=== PATIENT | female | born 2000 | race Caucasian/White ===

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

== ENCOUNTER 2019-09-17 16:30 | Inpatient (IN) | payer MEDICAID ==
[~2019-09-17] VITALS: Ht 154.9 cm; Wt 84.4 kg
[2019-09-17] MEDS: LR 1,000 ML IV SCH ×2 (17:20→21:50)
[2019-09-17] MEDS ORDERED: CEFAZOLIN 2 GM IVPB PREMIX 50 ML IV ONE (17:30)
[2019-09-17] MEDS: ACETAMINOPHEN 325 MG TABLET PO PRN (17:39)
[2019-09-17] MEDS ORDERED: ACETAMINOPHEN 325 MG TABLET ONE (17:48)
[2019-09-17 17:53] LABS: BASOPHILS % (AUTO) 0.4 % (0.0-2.0); EOSINOPHILS % (AUTO) 0.2 % (0.0-4.0); HEMOGLOBIN 10.1 g/dL (12.0-16.0); LYMPHOCYTES # (AUTO) 0.4 K/uL (1.0-5.5); LYMPHOCYTES % (AUTO) 6.7 % (20.5-51.5); MEAN CORPUSCULAR HEMOGLOBIN 27 pg (27-31); MEAN CORPUSCULAR HGB CONC 34 % (32-36); MEAN CORPUSCULAR VOLUME 81 fL (79.0-98.0); MONOCYTES # (AUTO) 0.5 K/uL (0.0-1.0); MONOCYTES % (AUTO) 9.7 % (1.7-9.3); NEUTROPHILS # (AUTO) 4.5 K/uL (1.8-7.7); PLATELET COUNT (AUTO) 143 K/uL (130-430); RED BLOOD CELL COUNT(AUTO) 3.71 MIL/uL (4.2-6.2); RED CELL DISTRIBUTION WIDTH 14.2 % (9.0-15.0); WHITE BLOOD COUNT (AUTO) 5.4 K/uL (4.8-10.8)
[2019-09-17 17:56] LABS: BILIRUBIN,URINE NEGATIVE (NEGATIVE); BLOOD, URINE 1+ (NEGATIVE); CLARITY/URINE CLOUDY (CLEAR); COLOR,URINE YELLOW (YELLOW); GLUCOSE,URINE NEGATIVE (NEGATIVE); KETONES,URINE 3+ (NEGATIVE); LEUKOCYTE ESTERASE ,URINE TRACE (NEGATIVE); NITRITE, URINE POSITIVE (NEGATIVE); PROTEIN URINE NEGATIVE (NEGATIVE)
[2019-09-17 18:02] LABS: CALCIUM 8.1 mg/dL (8.4-11.0); CREATININE 0.52 mg/dL (0.55-1.30); POTASSIUM 3.5 mmol/L (3.5-5.1)
[2019-09-17 18:08] LABS: ALBUMIN 2.5 g/dL (3.4-4.8); TOTAL BILIRUBIN 0.5 mg/dL (0.0-1.0)
[2019-09-17 18:22] LABS: BARBITURATE, URINE NEGATIVE (NEG <=200); BENZODIAZEPINE, URINE NEGATIVE (NEG <=150); CANNABINOID, URINE NEGATIVE (NEG <=50); COCAINE, URINE NEGATIVE (NEG <=150); METHAMPHETAMINES SCREEN,URINE NEGATIVE (NEG <=500); OPIATE, URINE NEGATIVE (NEG <=100); PHENCYCLIDINE SCREEN,URINE NEGATIVE (NEG <=25); UR TRICYCLIC ANTIDEPRESSANTS NEGATIVE (NEG <=300); URINE AMPHETAMINE NEGATIVE (NEG <=500); URINE METHADONE NEGATIVE (NEG <=200); URINE OXYCODONE SCREEN NEGATIVE (NEG <=100); URINE PROPOXYPHENE SCREEN NEGATIVE (NEG <=300)
[2019-09-17 18:52] LABS: BACTERIA,URINE MANY /HPF (None Seen); MUCUS,URINE 2+ /LPF (None Seen)
[2019-09-17] MEDS ORDERED: MORPHINE SULFATE 10 MG/ML VIAL IVP ONE (19:15)
[2019-09-18] MEDS: ceFAZolin SODIUM 1 GM in D5W 50 ML IV SCH ×5 (06:00→18:07)
[2019-09-18] MEDS: LR 1,000 ML IV SCH (06:00)
[2019-09-18] MEDS: ACETAMINOPHEN 325 MG TABLET PO PRN ×2 (06:45→14:47)
[2019-09-18] MEDS: guaiFENesin 200 MG/10 ML UDC PO PRN (11:52)
[2019-09-18] MEDS ORDERED: ceFAZolin SODIUM 1 GM VIAL ONE (12:03)
[2019-09-19] MEDS: LR 1,000 ML IV SCH (01:45)
[2019-09-19] MEDS: ceFAZolin SODIUM 1 GM in D5W 50 ML IV SCH ×4 (05:40→12:10)
[2019-09-19] MEDS: guaiFENesin 200 MG/10 ML UDC PO PRN (10:57)
== END 2019-09-19 14:50 | disposition home or self-care (01) | DRG 566 ==
LOC: SPU 16:30 → OBSVTOIN 09-18 08:35
PROVIDERS: ADMIT Specialist; ATTEND Specialist
DX: O23.03 Infections of kidney in pregnancy, third trimester (principal); J06.9 Acute upper respiratory infection, unspecified; O36.8330 Maternal care for abnormalities of the fetal heart rate or rhythm, third trimester, not applicable or unspecified; O99.513 Diseases of the respiratory system complicating pregnancy, third trimester; Z3A.35 35 weeks gestation of pregnancy
CPT/HCPCS: 36415; 76805-TC; 80053; 80307; 81000-TC; 85025; 86592; 86886; 86900; 86901; 87086; 87186-TC; G0378; J0690; J2270; J7060; J7120